=== PATIENT | female | born 1975 | race Caucasian/White ===

== ENCOUNTER 2020-04-20 08:52 | Emergency (ER) | payer SELFPAY ==
[~2020-04-20] VITALS: Ht 170.8 cm; Wt 65.7 kg
[2020-04-20] MEDS ORDERED: KETOROLAC 30 MG/ML VIAL ONE (09:47)
[2020-04-20] MEDS ORDERED: ONDANSETRON 4 MG/2 ML (SDV) Z0FRAN ONE (09:48)
[2020-04-20] MEDS ORDERED: NS IV 1000 ML 1,000 ML ONE (09:48)
[2020-04-20] MEDS ORDERED: KETOROLAC 30 MG/ML VIAL IVP STA (09:50)
[2020-04-20] MEDS ORDERED: NS IV 1000 ML 1,000 ML IV STA (09:50)
[2020-04-20] MEDS ORDERED: ONDANSETRON 4 MG/2 ML (SDV) Z0FRAN IVP ONE (10:00)
[2020-04-20 10:05] LABS: BILIRUBIN,URINE NEGATIVE (NEGATIVE); CLARITY,URINE SL CLOUDY; COLOR,URINE YELLOW; GLUCOSE, URINE (UA) NEGATIVE (NEGATIVE); KETONES,URINE NEGATIVE (NEGATIVE); LEUKOCYTE ESTERASE ,URINE TRACE (NEGATIVE); NITRITE,URINE POSITIVE (NEGATIVE); PH,URINE 5.5 (5-9); PROTEIN,URINE NEGATIVE (NEGATIVE)
[2020-04-20 10:09] LABS: BASOPHILS % (AUTO) 0 % (0-10); EOSINOPHILS # (AUTO) 0.1 10^3/uL (0.0-0.3); EOSINOPHILS % (AUTO) 0 % (0-10); HEMATOCRIT 38 % (35-52); HEMOGLOBIN 13.1 g/dL (11.5-16.0); LYMPHOCYTES # (AUTO) 1.8 10^3/uL (1.0-4.0); LYMPHOCYTES % (AUTO) 14 % (12-44); MEAN CORPUSCULAR HEMOGLOBIN 33 pg (25-34); MEAN CORPUSCULAR HGB CONC 35 g/dL (32-36); MEAN CORPUSCULAR VOLUME 94 fL (80-99); MEAN PLATELET VOLUME 9.7 fL (9.0-12.2); MONOCYTES % (AUTO) 8 % (0-12); NEUTROPHILS # (AUTO) 9.8 10^3/uL (1.8-7.8); NEUTROPHILS % (AUTO) 77 % (42-75); PLATELET COUNT 224 10^3/uL (130-400); WHITE BLOOD COUNT 12.7 10^3/uL (4.3-11.0)
[2020-04-20] MEDS ORDERED: PROP60TA17 PO (10:11)
[2020-04-20 10:12] LABS: POTASSIUM 3.3 MMOL/L (3.6-5.0)
[2020-04-20 10:14] LABS: CALCIUM 8.9 MG/DL (8.5-10.1)
--- NOTE | 2020-04-20 10:14 | ED Cough/URI ---
General Chief Complaint: Fever-Adult/Adol Stated Complaint: FEVER,BODY ACHES, HEADACHE Nursing Triage Note: pt states she has had fever and chills since yesterday, has not been feeling well for a few days Sepsis Screen: No Definite Risk Source: patient Exam Limitations: no limitations History of Present Illness Date Seen by Provider: Apr 20, 2020 Time Seen by Provider: 09:30 Initial Comments Here with report of overall not feeling well with fevers and chills since yesterday and some congestion, headache and nausea for the past few days. She thought it might be her migraine but yesterday broke out in fevers and had fever to the point that she had to turn on her air conditioner and then with sweating and had chills. Arrives today with body aches, headache, loss of taste and smell and overall not feeling well. 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 No specific contact with [employer]. Reports wearing a mask at work in [employer]. Timing/Duration: getting worse, other (2 days) Severity/Quality: mild Prior Episodes/Possible Cause: no prior episodes Associated Symptoms: cough (Mild), fever/chills, muscle aches, nasal congestion Allergies and Home Medications Allergies Coded Allergies: No Known Drug Allergies (Unverified , 04/20/20) Home Medications Propranolol HCl 60 Mg Tablet, 60 MG PO DAILY, (Reported) Patient Home Medication List Home Medication List Reviewed: Yes Review of Systems Review of Systems Constitutional: see HPI, chills, fever, weakness EENTM: see HPI Respiratory: see HPI; No short of breath, No wheezing Cardiovascular: No chest pain, No edema Gastrointestinal: No abdominal pain; nausea Genitourinary: no symptoms reported Musculoskeletal: see HPI Skin: no symptoms reported All Other Systems Reviewed Negative Unless Noted: Yes Past Kqxlotx-[place]-Jpmaaz Hx Past Med/Social Hx: Reviewed Nursing Past Med/Soc Hx Patient Social History Alcohol Use: Denies Use Recreational Drug Use: No Smoking Status: Never a Smoker 2nd Hand Smoke Exposure: No Recent Foreign Travel: No Contact w/Someone Who Travel: No Recent Infectious Disease Expo: No Recent Hopitalizations: No Seasonal Allergies Seasonal Allergies: No Past Medical History Surgeries: Yes (vaginal mesh, lithotripsy) Hysterectomy Respiratory: No Cardiac: No 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 oz. kg; 22.00 BMI Method: General Appearance: WD/WN, mild distress HEENT: PERRL/EOMI, pharynx normal Neck: full range of motion, supple Respiratory: lungs clear, normal breath sounds Cardiovascular: no murmur, tachycardia Gastrointestinal: non tender, soft Extremities: non-tender, normal inspection Neurologic/Psychiatric: alert, oriented x 3 Skin: normal color, warm/dry Progress/Results/Core Measures Suspected Sepsis Recent Fever Within 48 Hours: Yes Infection Criteria Present: None New/Unexplained Altered Menta: No Sepsis Screen: No Definite Risk SIRS Temperature: Pulse: 90 Respiratory Rate: 12 Laboratory Tests 04/20/20 09:37: White Blood Count 12.7H Blood Pressure / Mean: Laboratory Tests 04/20/20 09:37: Creatinine 1.11, Platelet Count 224, Total Bilirubin 0.9 Results/Orders Lab Results Laboratory Tests Test 04/20/20 09:37 Range/Units White Blood Count 12.7 H 4.3-11.0 10^3/uL Red Blood Count 3.99 3.80-5.11 10^6/uL Hemoglobin 13.1 11.5-16.0 g/dL Hematocrit 38 35-52 % Mean Corpuscular Volume 94 80-99 fL Mean Corpuscular Hemoglobin 33 25-34 pg Mean Corpuscular Hemoglobin Concent 35 32-36 g/dL Red Cell Distribution Width 12.6 10.0-14.5 % Platelet Count 224 130-400 10^3/uL Mean Platelet Volume 9.7 9.0-12.2 fL Immature Granulocyte % (Auto) 0 % Neutrophils (%) (Auto) 77 H 42-75 % Lymphocytes (%) (Auto) 14 12-44 % Monocytes (%) (Auto) 8 0-12 % Eosinophils (%) (Auto) 0 0-10 % Basophils (%) (Auto) 0 0-10 % Neutrophils # (Auto) 9.8 H 1.8-7.8 10^3/uL Lymphocytes # (Auto) 1.8 1.0-4.0 10^3/uL Monocytes # (Auto) 1.0 0.0-1.0 10^3/uL Eosinophils # (Auto) 0.1 0.0-0.3 10^3/uL Basophils # (Auto) 0.0 0.0-0.1 10^3/uL Immature Granulocyte # (Auto) 0.1 0.0-0.1 10^3/uL Erythrocyte Sedimentation Rate 22 H 0-20 MM/HR D-Dimer < 0.27 0.00-0.49 UG/ML Urine Color YELLOW Urine Clarity SL CLOUDY Urine pH 5.5 5-9 Urine Specific [place] 1.025 H 1.016-1.022 Urine Protein NEGATIVE NEGATIVE Urine Glucose (UA) NEGATIVE NEGATIVE Urine Ketones NEGATIVE NEGATIVE Urine Nitrite POSITIVE H NEGATIVE Urine Bilirubin NEGATIVE NEGATIVE Urine Urobilinogen 0.2 < = 1.0 MG/DL Urine Leukocyte Esterase TRACE H NEGATIVE Urine RBC (Auto) TRACE-L NEGATIVE Urine RBC 2-5 H /HPF Urine WBC 50-100 H /HPF Urine Squamous Epithelial Cells 5-10 /HPF Urine Crystals NONE /LPF Urine Bacteria MODERATE H /HPF Urine Casts NONE /LPF Urine Mucus SMALL H /LPF Urine Culture Indicated YES Sodium Level 139 135-145 MMOL/L Potassium Level 3.3 L 3.6-5.0 MMOL/L Chloride Level 104 98-107 MMOL/L Carbon Dioxide Level 22 21-32 MMOL/L Anion Gap 13 5-14 MMOL/L Blood Urea Nitrogen 11 7-18 MG/DL Creatinine 1.11 0.60-1.30 MG/DL Estimat Glomerular Filtration Rate 54 BUN/Creatinine Ratio 10 Glucose Level 96 70-105 MG/DL Calcium Level 8.9 8.5-10.1 MG/DL Corrected Calcium 8.9 8.5-10.1 MG/DL Total Bilirubin 0.9 0.1-1.0 MG/DL Aspartate Amino Transf (AST/SGOT) 13 5-34 U/L Alanine Aminotransferase (ALT/SGPT) 10 0-55 U/L Alkaline Phosphatase 35 L 40-136 U/L C-Reactive Protein High Sensitivity 7.19 H 0.00-0.50 MG/DL Total Protein 7.3 6.4-8.2 GM/DL Albumin 4.0 3.2-4.5 GM/DL Procalcitonin 0.07 <0.10 NG/ML Coronavirus 2019 ([facility]) Negative Negative My Orders Orders - THU KRAUS MD Ketorolac Injection (Toradol Injection) (04/20/20 09:47) Ns Iv 1000 Ml (Sodium Chloride 0.9%) (04/20/20 09:48) Ondansetron Injection (Zofran Injectio (04/20/20 09:48) Ondansetron Injection (Zofran Injectio (04/20/20 10:00) Ns Iv 1000 Ml (Sodium Chloride 0.9%) (04/20/20 09:50) Ed Iv/Invasive Line Start (04/20/20 09:50) Ketorolac Injection (Toradol Injection) (04/20/20 09:50) Fibrin Degradation Products (04/20/20 09:51) Procalcitonin (Pct) (04/20/20 09:51) Hs C Reactive Protein (04/20/20 09:51) Erythrocyte Sedimentation Rate (04/20/20 09:51) Covid 19 Inhouse Test (04/20/20 09:51) Cbc With Automated Diff (04/20/20 09:51) Comprehensive Metabolic Panel (04/20/20 09:51) Ua Culture If Indicated (04/20/20 09:51) Urine Culture (04/20/20 09:37) Coronavirus Sars-Cov-2 So 2018 (04/20/20 09:37) Ceftriaxone For Iv Use (Rocephin For I (04/20/20 10:27) Medications Given in ED Current Medications Medications Dose Ordered Sig/Annita Route Start Time Stop Time Status Last Admin Dose Admin Ondansetron HCl 4 mg ONCE ONCE IVP 04/20/20 10:00 04/20/20 10:01 DC 04/20/20 10:00 4 MG Vital Signs/I&O 04/20/20 09:40 Temp 37.2 Pulse 90 Resp 12 B/P (MAP) O2 Delivery Room Air Capillary Refill : Less Than 3 Seconds Progress Note : Progress Note Seen and evaluated. IV, labs, UA, influenza and COVID-19 screening ordered. LR 1 L bolus, Zofran 4 mg IV and Toradol 30 mg IV ordered. Patient counseled on concerns for COVID-19. Monitor patient. 1132: Covid rapid test was negative. Urine was positive for urinary tract infection. Rocephin 1 g IV initiated and complete. Patient is overall feeling much better. We will continue outpatient treatment. Patient informed of Covid concerns remaining and understands Covid instructions. Discharged home with return precautions. Patient verbalized understanding of instructions and agreement with plan. Departure Impression Primary Impression: Urinary tract infection Qualified Codes: N30.00 - Acute cystitis without hematuria Additional Impression: Person under investigation for COVID-19 Disposition: HOME, SELF-CARE Condition: Stable Departure-Patient Inst. Decision time for Depature: 11:34 Referrals: NO,LOCAL PHYSICIAN (PCP/Family) Primary Care Physician Patient Instructions: Coronavirus Disease 2019 (COVID-19) (DC), Urinary Tract Infection, Adult (DC) Add. Discharge Instructions: All discharge instructions reviewed with patient and/or family. Voiced understanding. Take medications as directed. Drink plenty of fluids and get plenty of rest. You will need to remain isolated until test results are noted. If they are negative, you will need remain isolated for 3 days after symptoms resolve. If they are positive, the health department will call you and direct quarantine/ isolation timeframe. You may take ibuprofen 600 mg every 8 hours as needed for fever or pain. You may take Tylenol/acetaminophen 1000 mg every 8 hours as needed for fever or pain. Return for worse pain, fever, vomiting, weakness, breathing problems or other concerns as needed. Scripts Cephalexin (Cephalexin) 500 Mg Tablet 500 MG PO BID, #14 TAB 0 Refills Prov: THU KRAUS MD 04/20/20 THU KRAUS MD Apr 20, 2020 10:14
[2020-04-20 10:15] LABS: BACTERIA,URINE MODERATE /HPF; TOTAL PROTEIN 7.3 GM/DL (6.4-8.2); WBC,URINE 50-100 /HPF
[2020-04-20 10:17] LABS: BILIRUBIN,TOTAL 0.9 MG/DL (0.1-1.0)
[2020-04-20 10:18] LABS: CREATININE SERUM 1.11 MG/DL (0.60-1.30)
[2020-04-20 10:27] LABS: ERYTHROCYTE SEDIMENTATION RATE 22 MM/HR (0-20)
[2020-04-20] MEDS ORDERED: cefTRIAXone FOR IV USE 1,000 MG in WATER (STERILE) FOR INJECTION 10 ML IV STA (10:27)
[2020-04-20] MEDS ORDERED: CEPH500T PO (11:36)
[2020-04-20 12:14] VITALS: BP 110/78
== END 2020-04-20 12:14 | disposition home or self-care (01) ==
LOC: ER 08:53
DX: N30.00 Acute cystitis without hematuria (principal); R05 Cough; R51.9 Headache, unspecified; R43.8 Other disturbances of smell and taste; R09.81 Nasal congestion; Z20.828 Contact with and (suspected) exposure to other viral communicable diseases
CPT/HCPCS: 80053; 81000; 84145; 85025; 85379; 85652; 86141; 87077; 87088; 87186; 99284; U0002; 36415; 87635